=== PATIENT | female | born 1955 | race Two or more races ===

== ENCOUNTER 2024-03-18 06:30 | Day surgery (SDC) | payer OTHER ==
[2024-02-29 12:36] VITALS: BP 164/76
[~2024-03-18] VITALS: Ht 157.5 cm; Wt 52.2 kg
[~2024-03-18 06:30] MED LIST: ATORVASTATIN CA10 MG PO; COZAAR50 MG PO; JANUVIA100 MG PO
[2024-03-18] MEDS ORDERED: CEFAZOLIN SODIUM 1,000 MG VIAL ONE (12:00)
[2024-03-18 23:01] VITALS: BP 143/79; O2SAT 100
== END 2024-03-18 19:50 | disposition home or self-care (01) ==
LOC: CIR.AMB 06:30
PROVIDERS: ATTEND Surgery
DX: C50.412 Malignant neoplasm of upper-outer quadrant of left female breast (principal); R59.0 Localized enlarged lymph nodes